=== PATIENT | male | born 2000 | race Caucasian/White ===

== ENCOUNTER 2024-07-11 13:06 | Outpatient (CLI) | payer BC ==
[2024-07-11 14:45] LABS: #Basophils 0.03 10x3/uL (0.0-0.2); #Monocytes 1.11 10x3/uL (0.0-1.1); #Neutrophils 5.17 10x3/uL (1.5-8.4); %Basophils 0.3 % (0.0-2.0); %Eosinophils 2.2 % (0.0-6.0); %Lymphocytes 26.5 % (18.0-47.0); %Monocytes 12.4 % (0.0-10.0); Hematocrit 44.4 % (38.8-50.0); Hemoglobin 15.3 g/dL (13.5-17.5); Mean Corpuscular HGB CONC 34.5 g/dL (32.0-36.0); Mean Corpuscular Hemoglobin 31.1 pg (27.0-33.0); Mean Corpuscular Volume 90.2 fL (81.2-95.1); Mean Platelet Volume 10.7 fL (7.4-10.4); Platelet Count 176 10x3/uL (150-450); RBC Distribution Width 11.4 % (11.5-14.5); Red Blood Cell (RBC) Count 4.92 10x6/uL (4.32-5.72); White Blood Cell (WBC) Count 8.9 10x3/uL (3.5-10.5)
== END 2024-07-11 13:07 | disposition home or self-care (01) ==
LOC: CSHLAB 13:06
PROVIDERS: ATTEND Surgery
DX: Z01.812 Encounter for preprocedural laboratory examination (principal); L05.91 Pilonidal cyst without abscess
CPT/HCPCS: 85025

== ENCOUNTER 2024-07-12 09:13 | Day surgery (SDC) | payer BC ==
[2024-07-11 13:30] VITALS: BMI 26.4
[2024-07-12] MEDS ORDERED: Bupivacaine/Epinephrine 0.25% 30 ML VIAL ONE (12:29)
[2024-07-12] MEDS ORDERED: Midazolam HCl 2 mg/2 ml Vial ONE (12:30)
[2024-07-12] MEDS ORDERED: ceFOXitin 1 GM VIAL ONE (12:39)
[2024-07-12] MEDS ORDERED: Lidocaine 2% PF 5 ML VIAL ONE (12:40)
[2024-07-12] MEDS ORDERED: Dexamethasone 20 MG/5 ML VIAL ONE (12:41)
[2024-07-12] MEDS ORDERED: Rocuronium Bromide 10 MG/ML (10ML VIAL) ONE (12:41)
[2024-07-12] MEDS ORDERED: Ondansetron PF 4 MG/2 ML Vial ONE (12:41)
[2024-07-12] MEDS ORDERED: PROPOFOL 20 ML ONE ×2 (12:41→13:38)
[2024-07-12] MEDS ORDERED: fentaNYL 50 mcg/mL 1 mL Vial ONE (12:42)
[2024-07-12] MEDS ORDERED: SUGAMMADEX SODIUM 200 MG/2 ML VIAL ONE (13:24)
[2024-07-12] MEDS ORDERED: Ketorolac Tromethamine 30 MG (1 mL) VIAL ONE (13:28)
== END 2024-07-12 15:20 | disposition home or self-care (01) ==
LOC: CSHSDC 09:13
PROVIDERS: ATTEND Surgery
PROC: 0H98X0Z Drainage of Buttock Skin with Drainage Device, External Approach (ICD-10-PCS; principal; 2024-07-12)
DX: L05.01 Pilonidal cyst with abscess (principal); J45.909 Unspecified asthma, uncomplicated; Z79.51 Long term (current) use of inhaled steroids
CPT/HCPCS: 87070; 87102; 87205; 87206; J0694; J1100; J1885; J2001; J2250; J2405; J2704; J3010